=== PATIENT | female | born 1990 | race Caucasian/White ===

== ENCOUNTER 2016-12-29 21:13 | Emergency (ER) | payer MEDICAID, OTHER ==
[~2016-12-29] VITALS: Ht 152.4 cm; Wt 61.2 kg
[2016-12-29 21:20] VITALS: BP 123/71
[2016-12-29] MEDS ORDERED: VIVI380I IM (21:35)
--- NOTE | 2016-12-30 06:54 | REP ---
Left foot four views : There is no fracture or dislocation. Mineralization and joint spaces are normal. There are no calcifications or foreign bodies. Impression: Negative left foot . Signed by Mgadaleno Rdz MD 12/30/2016 06:46 A
== END 2016-12-29 22:25 | disposition home or self-care (01) ==
LOC: M ED 21:13
DX: S90.32XA Contusion of left foot, initial encounter (principal); W20.8XXA Other cause of strike by thrown, projected or falling object, initial encounter; Y92.89 Other specified places as the place of occurrence of the external cause; Y93.89 Activity, other specified; Y99.0 Civilian activity done for income or pay

== ENCOUNTER 2017-01-01 10:33 | Emergency (ER) | payer OTHER ==
[~2017-01-01] VITALS: Ht 152.4 cm; Wt 59.1 kg
[~2017-01-01 10:33] MED LIST: VIVI380I IM
[2017-01-01] MEDS ORDERED: NALT50TA4 PO (10:42)
[2017-01-01] MEDS ORDERED: NS 1,000 ML IV SCH (10:44)
[2017-01-01] MEDS ORDERED: ONDANSETRON 4MG/2ML VIAL (J2405) IV ONE (11:00)
[2017-01-01 11:05] LABS: ADD MANUAL DIFFER YES; DIFF SLIDE NUMBER 181; MEAN CORPUSCULAR HEMOGLOBIN 29.3 pg (27.0-33.0); MEAN CORPUSCULAR HGB CONC 33.7 g/dl (32.0-36.5); PLATELET COUNT, AUTOMATED 193 k/mm3 (150-450); RED CELL DISTRIBUTION WIDTH 12.1 % (11.5-14.5); WHITE BLOOD COUNT 2.9 K/mm3 (4.0-10.0)
[2017-01-01 11:16] LABS: CONTROL LINE HCG INT CTR LINE PRESENT; INR 1.03
[2017-01-01 11:35] LABS: ALBUMIN 4.1 GM/DL (3.2-5.2); ALBUMIN/GLOBULIN RATIO 1.37 (1.00-1.93); ALKALINE PHOSPHATASE 55 U/L (45-117); ALT/SGPT 24 U/L (12-78); ANION GAP 11 MEQ/L (8-16); AST/SGOT 28 U/L (15-37); BILIRUBIN,DIRECT 0.2 MG/DL (0.0-0.2); BILIRUBIN,TOTAL 0.7 MG/DL (0.2-1.0); BLOOD UREA NITROGEN 11 MG/DL (7-18); CALCIUM LEVEL 8.6 MG/DL (8.5-10.1); CARBON DIOXIDE LEVEL 25 MEQ/L (21-32); CHLORIDE LEVEL 100 MEQ/L (98-107); CREATININE FOR GFR 0.88 MG/DL (0.55-1.02); GLOMERULAR FILTRATION RATE > 60.0 (>60); GLUCOSE, FASTING 162 MG/DL (70-105); SODIUM LEVEL 136 MEQ/L (136-145); TOTAL PROTEIN 7.1 GM/DL (6.4-8.2)
[2017-01-01] MEDS ORDERED: POTASSIUM CHLORIDE 10 MEQ SR TABLET PO ONE (12:15)
[2017-01-01 13:03] VITALS: BP 110/71
--- NOTE | 2017-01-02 11:24 | ECGEPIP ---
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
== END 2017-01-01 13:39 | disposition home or self-care (01) ==
LOC: EDBD 10:33 → M ED 10:33
DX: T40.2X2A Poisoning by other opioids, intentional self-harm, initial encounter (principal); E87.6 Hypokalemia

== ENCOUNTER → 2017-03-19 | Outpatient (REF) | payer OTHER ==
[~2017-03-19] MED LIST changes: +NALT50TA4 PO
== END ==
LOC: M SFHCWAGY 15:37
PROVIDERS: ATTEND Family Medicine
DX: Z12.4 Encounter for screening for malignant neoplasm of cervix (principal); Z11.3 Encounter for screening for infections with a predominantly sexual mode of transmission; A59.09 Other urogenital trichomoniasis

== ENCOUNTER → 2017-10-15 | Outpatient (REF) | payer OTHER ==
[2017-10-15 18:20] LABS: APPEARANCE, URINE MANUAL TURBID (CLEAR); COLOR, URINE MANUAL LT YELLOW (YELLOW)
[2017-10-15 18:21] LABS: BILIRUBIN, URINE MANUAL NEGATIVE (NEGATIVE); BLOOD URINE MANUAL NEGATIVE (NEGATIVE); GLUCOSE, URINE (UA) MANUAL NEGATIVE (NEGATIVE); KETONE, URINE MANUAL 3+ mg/dL (NEGATIVE); LEUKOCYTE ESTERASE, URINE MAN NEGATIVE (NEGATIVE); MICROSCOPIC INDICATED? MAN YES (NO); NITRITE, URINE MANUAL NEGATIVE (NEGATIVE); PROTEIN, URINE MANUAL TRACE mg/dL (NEGATIVE); SPECIFIC GRAVITY,URINE MANUAL 1.025 (1.002-1.035); UROBILINOGEN, URINE MANUAL NORMAL (NORMAL)
[2017-10-15 19:03] LABS: BACTERIA, URINE SMALL AMOUNT; HYALINE CAST, URINE NONE SEEN /lpf (0-1); RBC, URINE NONE SEEN /hpf (0-3); SQUAMOUS EPITHELIAL CELL URINE LARGE AMOUNT /hpf (SMALL AMT)
[2017-10-15 19:04] LABS: AMORPHOUS SEDIMENT, URINE MOD AMOUNT (NEGATIVE); MICROSCOPIC EXAM PERFORMED
[2017-10-15 19:20] LABS: ALBUMIN 4.4 GM/DL (3.2-5.2); ALBUMIN/GLOBULIN RATIO 1.38 (1.00-1.93); ALKALINE PHOSPHATASE 58 U/L (45-117); ALT/SGPT 17 U/L (12-78); ANION GAP 8 MEQ/L (8-16); AST/SGOT 15 U/L (7-37); BILIRUBIN,TOTAL 0.9 MG/DL (0.2-1.0); BLOOD UREA NITROGEN 22 MG/DL (7-18); CALCIUM LEVEL 8.5 MG/DL (8.5-10.1); CARBON DIOXIDE LEVEL 27 MEQ/L (21-32); CHLORIDE LEVEL 102 MEQ/L (98-107); FREE T4 1.25 NG/DL (0.76-1.46); GLOMERULAR FILTRATION RATE > 60.0 (>60); GLUCOSE, FASTING 94 MG/DL (70-100); POTASSIUM SERUM 3.4 MEQ/L (3.5-5.1); SODIUM LEVEL 137 MEQ/L (136-145); TOTAL PROTEIN 7.6 GM/DL (6.4-8.2)
[2017-10-15 22:10] LABS: CONTROL LINE HCG INT CTR LINE PRESENT; HCG, SERUM QUALITATIVE NEGATIVE (NEGATIVE)
[2017-10-19 00:09] LABS: TISSUE TRANSGLUTAMINASE IgA <2 U/mL (0-3)
== END ==
LOC: M SFHCPLAZ 15:52
DX: K52.9 Noninfective gastroenteritis and colitis, unspecified (principal); R63.4 Abnormal weight loss; N91.2 Amenorrhea, unspecified; B18.2 Chronic viral hepatitis C

== ENCOUNTER → 2019-08-29 | Outpatient (REF) | payer OTHER ==
[~2019-08-29] MED LIST changes: +LEVA750T7 PO; +REGL10TA6 PO
== END ==
LOC: M SFHCWAGY 17:42
PROVIDERS: ATTEND Nurse Practitioner Women's Health
DX: Z12.4 Encounter for screening for malignant neoplasm of cervix (principal); A59.01 Trichomonal vulvovaginitis

== ENCOUNTER → 2019-08-31 | Outpatient (CLI) | payer OTHER ==
--- NOTE | 2019-08-31 20:35 | REP ---
Clinical: Irregular menstrual cycles. Technique: Transabdominal pelvic ultrasound with color evaluation. Findings: Bladder is normal and measures approximately 5.5 x 2.6 x 6.0 cm. Normal anteverted uterus measures 8.2 x 4.5 x 5.2 cm. Endometrial complex measures 6.2 mm thickness. The bilateral ovaries are normal in vascularity without torsion. Left ovary measures 3.1 x 2.3 x 3.0 cm. Right ovary measures 3.8 x 2.6 x 2.1 cm and includes 2.3 x 2.2 x 1.8 cm cyst likely physiologic follicle. No pelvic fluid or adnexal mass lesion. Impression: Essentially normal pelvic ultrasound. 2.3 cm presumed physiologic cyst in the right ovary. Electronically Signed by Saurabh Tracey MD 08/31/2019 08:26 P
== END ==
LOC: M WHC 12:53
PROVIDERS: ATTEND Nurse Practitioner Women's Health
DX: N83.201 Unspecified ovarian cyst, right side (principal); N92.6 Irregular menstruation, unspecified

== ENCOUNTER → 2019-08-31 | Outpatient (REF) | payer OTHER ==
[2019-08-31 18:17] LABS: FREE T4 1.26 NG/DL (0.76-1.46); THYROID STIMULATING HORMONE 1.13 uIU/ML (0.358-3.740)
[2019-08-31 18:19] LABS: ESTRADIOL 81.5 PG/ML; FOLLICLE STIMULATING HORMONE 3.7 mIU/mL; LUTEINIZING HORMONE 7.5 mIU/mL; PROLACTIN 9.1 NG/ML
[2019-09-03 00:16] LABS: DEHYDROEPIANDROSTERONE SULFATE 178.6 ug/dL (84.8-378.0); TESTOSTERONE FREE (DIRECT) 1.6 pg/mL (0.0-4.2)
== END ==
LOC: M PLALAB 13:22
PROVIDERS: ATTEND Nurse Practitioner Women's Health
DX: Z12.4 Encounter for screening for malignant neoplasm of cervix (principal); N92.6 Irregular menstruation, unspecified

== ENCOUNTER 2022-02-22 21:08 | Emergency (ER) | payer OTHER ==
[~2022-02-22] VITALS: Ht 152.4 cm; Wt 64.5 kg
[2022-02-22 21:09] VITALS: BP 130/83
[2022-02-22] MEDS ORDERED: DALBAVANCIN 1,500 MG in D5W 250 ML IV ONE (22:15)
[2022-02-22] MEDS ORDERED: CEFTAROLINE FOSAMIL 600 MG in D5W MINI-BAG PLUS 50 ML IV ONE (22:40)
[2022-02-22] MEDS ORDERED: LIDOCAINE 2% MDV 20ML VIAL SC ONE (22:40)
[2022-02-23] MEDS ORDERED: DALBAVANCIN 1,500 MG in D5W 250 ML IV ONE (00:10)
== END 2022-02-23 06:09 | disposition left against medical advice (07) ==
LOC: M ED 21:08
DX: L03.012 Cellulitis of left finger (principal); F11.10 Opioid abuse, uncomplicated; F32.A Depression, unspecified; F41.9 Anxiety disorder, unspecified; B19.20 Unspecified viral hepatitis C without hepatic coma; R56.9 Unspecified convulsions; F17.200 Nicotine dependence, unspecified, uncomplicated
CPT/HCPCS: 73140; 80047; 96365; 99283; J0875

== ENCOUNTER 2023-04-30 19:44 | Emergency (ER) | payer OTHER ==
[~2023-04-30] VITALS: Ht 152.4 cm; Wt 58.7 kg
[2023-04-30 19:45] VITALS: BP 140/95; TEMP 97.8; O2SAT 100
[2023-04-30] MEDS ORDERED: TETRACAINE 0.5% OPHTH SOLN 4ML OU ONE (21:20)
[2023-04-30] MEDS ORDERED: FLUORESCEIN OPHTH 1MG STRIP OU ONE (21:20)
[2023-04-30] MEDS ORDERED: CIPROFLOXACIN 0.3% OPHTH SOLN 2.5ML OU ONE (21:50)
[2023-04-30] MEDS ORDERED: CIPR3OPO OU (21:54)
== END 2023-04-30 22:05 | disposition home or self-care (01) ==
LOC: M ED 19:44
DX: H10.33 Unspecified acute conjunctivitis, bilateral (principal)

== ENCOUNTER 2024-07-09 16:20 | Emergency (ER) | payer OTHER ==
[~2024-07-09] VITALS: Ht 152.4 cm; Wt 64.1 kg
[~2024-07-09 16:20] MED LIST changes: +CIPR3OPO OU
[2024-07-09] MEDS ORDERED: SERO50TA PO (16:38)
[2024-07-09] MEDS: ALBUTEROL 90 MCG/ACT 8GM HFA INHALER INH ONE (18:28)
[2024-07-09] MEDS ORDERED: BENZ200C70 PO (20:34)
[2024-07-09] MEDS ORDERED: VENTAER INH (20:34)
[2024-07-09 20:45] VITALS: BP 117/69; TEMP 101.3; O2SAT 99
== END 2024-07-09 20:52 | disposition home or self-care (01) ==
LOC: M ED 16:20
DX: U07.1 COVID-19 (principal); J98.01 Acute bronchospasm; F41.9 Anxiety disorder, unspecified; F32.A Depression, unspecified; Z86.19 Personal history of other infectious and parasitic diseases; Z79.51 Long term (current) use of inhaled steroids; Z79.899 Other long term (current) drug therapy